=== PATIENT | male | born 1985 | race Two or more races ===

== ENCOUNTER → 2024-11-24 | Outpatient (CLI) | payer MEDICAID, SELFPAY ==
--- NOTE | 2024-11-24 12:12 | XR_ITS ---
Examination: CT pelvis without intravenous contrast. 2-D sagittal and coronal reconstructions. Date and time of exam:November 24, 2024, 12:26 PM INDICATIONS: Intermittent pelvic pain 3 months abnormal urine CTDI: vol (mGy) :7.57 DLP: (mGycm) : 286 Technique: Multiple 3 mm axial sections of the pelvis have been obtained with the 64 slice high resolution scanner. 2-D sagittal and coronal reconstructions. Low dose protocols were performed. One or more of the following dose reduction techniques were used; automated exposure control, adjustment of the mA and/or KV according to patient size, use of iterative reconstruction technique. Findings: Normal appendix No bowel obstruction No diverticulitis Normal seminal vesicles Normal size prostate No bladder mass or bladder calculi No inguinal hernias Moderate disc narrowing posteriorly L5-S1 IMPRESSION: No pelvic mass No inguinal hernia defects
== END | disposition home or self-care (01) ==
LOC: CCTX 11:50 → SCAT 11:53
PROVIDERS: PCP Nurse Practitioner Family; Referring Provider Nurse Practitioner Family; Visit Provider Nurse Practitioner Family
DX: R82.90 Unspecified abnormal findings in urine (principal); R10.9 Unspecified abdominal pain
CPT/HCPCS: 72192